=== PATIENT | female | born 1980 | race Caucasian/White ===

== ENCOUNTER 2016-09-26 04:06 | Observation (INO) ==
[2016-09-26] MEDS ORDERED: 0.9 % Sodium Chloride 1,000 ML IVC ONE (04:24)
--- NOTE | 2016-09-26 04:39 | Emergency Department Note ---
Disposition Clinical Impression: Symptomatic sinus bradycardia Disposition: Admitted As Inpatient Condition: Fair Time of Disposition: 06:36 General Adult HPI - General Chief complaint: ED Dizziness Stated complaint: high glucose low heart rate Time Seen by Provider: 09/26/16 04:24 Source: patient, other Mode of arrival: ambulatory Limitations: no limitations Nursing Notes Reviewed: Yes Vital Signs Reviewed: Yes - History of Present Illness HPI Narrative: 35-year-old female history of seizure disorder takes Keppra presents to the ED not feeling well and dizziness. Around 2 o'clock this morning her mother who is a nurse checked her vitals after she reports not feeling well and lightheaded. Her pulse was found to be in the 40s in her blood sugar was checked and was well above 400. She denies any history of diabetes. She denies any recent illness, headache, fever, chest pain, shortness of breath. Denies any recent travel, tick bites, rash. Denies any new medications other than her Keppra, gabapentin, Benadryl and Zanaflex. Denies any bowel pain, nausea, vomiting. Denies any abdominal surgeries. No family history of cardiac disease. Denies any loss of consciousness or head injury. She appears very pale. She just finished her menstrual period. Follows with Dr. Tamayo, PCP. Pain Scale: 0 - Related Data Home Medications Medication Instructions Recorded Confirmed Gabapentin [Neurontin] 600 mg PO TID 02/16/15 08/13/15 Norgestimate-Ethinyl Estradiol 1 tab PO DAILY 08/13/15 08/13/15 [Sprintec 28 Day Tablet] OxyCODONE/APAP 5/325 [Percocet 1 each PO Q6HR PRN 08/13/15 08/13/15 5/325 MG] Tizanidine HCl 4 mg PO Q8H PRN 08/13/15 08/13/15 Previous Rx's Medication Instructions Recorded Ibuprofen [Motrin] 600 mg PO Q8HR PRN #20 tablet 05/30/15 OxyCODONE/APAP 5/325 [Percocet 1 each PO Q6HR PRN #20 tablet 08/13/15 5/325 MG] Allergies Allergy/AdvReac Type Severity Reaction Status Date / Time Sulfa (Sulfonamide Allergy unknown Verified 09/26/16 04:18 Antibiotics) childhood reaction All systems ED: reviewed and negative except as stated. Constitutional: Reports: weakness. Denies: fever, chills Cardiovascular: Denies: chest pain, palpitations Respiratory: Denies: cough, dyspnea, wheezes Gastrointestinal: Denies: nausea, vomiting, diarrhea, melena, hematochezia Genitourinary: Denies: urgency, dysuria, frequency Musculoskeletal: Denies: back pain, neck pain Integumentary: Denies: rash, abrasion Neurological: Reports: confusion, other (Lightheaded). Denies: headache, weakness, numbness Past Medical History - Past Medical History Attestation: Yes The following information was validated with the patient. Source: patient Medical history: Reports: seizures Surgical history: Reports: , cholecystectomy Psychiatric history: Reports: depression - Social History Smoking Status: Current every day smoker Smokeless Tobacco Status: No Alcohol use: Reports: none Drug use: Reports: none Physical Exam - General Limitations: no limitations General appearance: alert, in no apparent distress - Head Head exam: atraumatic, normocephalic, normal inspection - Eye Eye exam: Present: normal appearance, PERRL, EOMI. Absent: scleral icterus - ENT ENT exam: normal exam, normal oropharynx, mucous membranes dry - Neck Neck exam: Present: normal inspection, full ROM, trachea midline. Absent: tenderness, lymphadenopathy - Chest Chest inspection: Present: normal inspection, symmetric chest wall rise. Absent : tenderness, rash - Respiratory Respiratory exam: Present: normal lung sounds bilaterally. Absent: respiratory distress, wheezes, stridor - Cardiovascular Cardiovascular exam: Present: normal rhythm, bradycardia, normal heart sounds. Absent: systolic murmur, diastolic murmur - Abdominal Exam Abdominal exam: Present: soft, Non-Tender, normal bowel sounds. Absent: tenderness, distention, guarding, rebound, rigidity - Extremities Exam Extremities exam: Present: normal inspection, full ROM, normal capillary refill. Absent: tenderness, pedal edema, calf tenderness - Neurological Exam Neurological exam: Present: alert, oriented X3 - Psychiatric Psychiatric exam: Present: normal affect, normal mood - Skin Skin exam: Present: dry, intact, pallor Course Course Narrative: 35-year-old female history of seizure disorder presents to ED with hyperglycemia. She denies any history of diabetes. Point of care glucose 312. Patient is afebrile. Heart rate is in the 40s. She appears very pale and denies any chest pain or shortness of breath. She appears in no acute distress. EKG shows sinus bradycardia with the first-degree AV block GA interval 221. She has no obvious rash or lesion. Heart without murmurs or gallops. Lungs are clear to auscultation bilaterally. Abdomen is soft nontender nondistended. Neurologic exam is normal without any focal neural deficits. Will check basic labs, VBG, CT head, CXR, troponin, serum ketones, and urine. - Reevaluation(s) Reevaluation #1: CT head is unremarkable for any intracranial abnormality. Electrolytes are within normal limits. Potassium is normal at 4. She has an acidosis of 7.3 with elevated CO2 in 50s. Lactate ordered. Glucose is elevated 312. No metabolic acidosis and serum ketone is normal. She is not in DKA. EKG shows 1st degree AV block. Her HR has fluctuated between 40-50s. Mentation is baseline. No slurring of speech. UDS reveals positive opiates and benzo. She admits to using old percocet medications a few days ago and a nerve pill a few weeks ago. Denies any other recreational drugs or IV drugs. Will admit for observation for symptomatic bradycardia with unclear etiology. Patient and family are in agreement with plan. Time: 06:30 - Consultations Consultation #1: Spoke with on-call hospitalist osmany Downs to admit for symptomatic bradycardia and acidosis. Requests to order salicylate, Tylenol, lactic acid. Patient was completely straightforward when revealing your drug screen. She reports taken her Percocet which is old prescription for back pain as well as getting a nerve pill she took a few weeks ago. Denies any intentional overdose of any medication. Denies any IV drug use or alcohol use. Time: 06:35 Vital Signs Temperature 98.2 F 09/26/16 04:08 Pulse Rate 48 09/26/16 04:08 Respiratory Rate 20 09/26/16 04:08 Blood Pressure 155/111 09/26/16 04:08 O2 Sat by Pulse Oximetry 100 09/26/16 04:08 Temperature 98.2 F 09/26/16 04:08 Pulse Rate 51 09/26/16 07:02 Respiratory Rate 18 09/26/16 07:02 Blood Pressure 123/73 09/26/16 07:02 O2 Sat by Pulse Oximetry 99 09/26/16 07:02 Oxygen Delivery Oxygen Delivery Room Air Medical Decision Making - Medical Records Medical records reviewed: Yes I reviewed the patient's medical records. - Lab Data Lab results reviewed: Yes I reviewed the patient's lab results. Result diagrams: 09/26/16 03:35 09/26/16 03:35 Lab Results 09/26/16 09/26/16 09/26/16 Range/Units 03:35 03:35 03:35 WBC 14.1 H (4.3-11.1) K/mcL RBC 4.24 (3.82-4.97) M/mcL Hgb 12.9 (11.5-15.4) g/dL Hct 39.3 (35.3-44.9) % MCV 92.7 (83.0-100.0) fL MCH 30.4 (28.0-33.3) pg MCHC 32.8 (31.6-35.5) g/dL RDW 13.1 (11.5-14.5) % Plt Count 356 (140-400) K/mcL MPV 9.6 (9.4-12.4) fL Immature Gran % 0.4 (0-4) % Seg Neutrophils % 62.7 % Lymphocytes % 29.7 % Monocytes % 4.8 % Eosinophils % 1.8 % Basophils % 0.6 % Neutrophils # 8.8 (1.6-8.9) K/mcL Lymphocytes # 4.2 (0.6-4.6) K/mcL Monocytes # 0.7 (0.0-1.3) K/mcL Eosinophils # 0.3 (0.0-0.6) K/mcL Basophils # 0.1 (0.0-0.2) K/mcL VBG pH (7.32-7.42) pH Units VBG pCO2 (41-51) mmHg VBG pO2 (25-40) mmHg VBG HCO3 (21-27) mEq/L Sodium 137 (136-145) mEq/L Potassium 4.0 (3.5-4.5) mEq/L Chloride 106 (98-109) mEq/L Carbon Dioxide 23 (19-29) mEq/L BUN 10 (7-20) mg/dL Creatinine 0.95 (0.57-1.11) mg/dL Est GFR ( Amer) > 60 (> 60) Est GFR (Non-Af Amer) > 60 (> 60) BUN/Creatinine Ratio 11 (6-26) Glucose 328 H (70-99) mg/dL POC Glucose (58-89) Calculated Osmolality 296 (280-300) Lactic Acid (0.5-2.2) mmol/L Calcium 8.5 L (8.6-10.8) mg/dL Troponin I 0.00 (0-0.03) ng/mL Beta-Hydroxybutyric Acd 0.22 (0.02-0.27) mmol/L Urine Color (Yellow) Urine Clarity (Clear) Urine pH (5.0-8.0) pH Units Ur Specific [place] (1.010-1.025) Urine Protein (Neg-Trace) mg/dL Urine Glucose (UA) (Normal) mg/dL Urine Ketones (Negative) mg/dL Urine Blood (Negative) Urine Nitrite (Negative) Urine Bilirubin (Negative) Urine Urobilinogen (Normal) mg/dL Ur Leukocyte Esterase (Negative) Urine Microscopic WBC (0-3) per hpf Ur Squamous Epith Cells (None-Few) per lpf Urine Bacteria (None-Few) per hpf Hyaline Casts (None-Few) per lpf Ur Culture Indicated? (NO) Salicylates < 5.0 L (15-30) mg/dL Urine Opiates Screen (Zushvc=849) ng/mL Acetaminophen 4.0 L (10-30) mcg/mL Ur Barbiturates Screen (Lqotey=648) ng/mL Ur Phencyclidine Scrn (Cutoff=25) ng/mL Ur Amphetamines Screen (Uczpar=9338) ng/mL U Benzodiazepines Scrn (Rmnqhu=884) ng/mL Urine Cocaine Screen (Cutoff= 300) ng/mL U Marijuana (THC) Screen (Cutoff = 50) ng/mL 09/26/16 09/26/16 09/26/16 Range/Units 03:35 03:35 04:13 WBC (4.3-11.1) K/mcL RBC (3.82-4.97) M/mcL Hgb (11.5-15.4) g/dL Hct (35.3-44.9) % MCV (83.0-100.0) fL MCH (28.0-33.3) pg MCHC (31.6-35.5) g/dL RDW (11.5-14.5) % Plt Count (140-400) K/mcL MPV (9.4-12.4) fL Immature Gran % (0-4) % Seg Neutrophils % % Lymphocytes % % Monocytes % % Eosinophils % % Basophils % % Neutrophils # (1.6-8.9) K/mcL Lymphocytes # (0.6-4.6) K/mcL Monocytes # (0.0-1.3) K/mcL Eosinophils # (0.0-0.6) K/mcL Basophils # (0.0-0.2) K/mcL VBG pH 7.31 L (7.32-7.42) pH Units VBG pCO2 53 H (41-51) mmHg VBG pO2 39 (25-40) mmHg VBG HCO3 26.7 (21-27) mEq/L Sodium (136-145) mEq/L Potassium (3.5-4.5) mEq/L Chloride (98-109) mEq/L Carbon Dioxide (19-29) mEq/L BUN (7-20) mg/dL Creatinine (0.57-1.11) mg/dL Est GFR ( Amer) (> 60) Est GFR (Non-Af Amer) (> 60) BUN/Creatinine Ratio (6-26) Glucose (70-99) mg/dL POC Glucose 312 H (58-89) Calculated Osmolality (280-300) Lactic Acid 1.5 (0.5-2.2) mmol/L Calcium (8.6-10.8) mg/dL Troponin I (0-0.03) ng/mL Beta-Hydroxybutyric Acd (0.02-0.27) mmol/L Urine Color (Yellow) Urine Clarity (Clear) Urine pH (5.0-8.0) pH Units Ur Specific [place] (1.010-1.025) Urine Protein (Neg-Trace) mg/dL Urine Glucose (UA) (Normal) mg/dL Urine Ketones (Negative) mg/dL Urine Blood (Negative) Urine Nitrite (Negative) Urine Bilirubin (Negative) Urine Urobilinogen (Normal) mg/dL Ur Leukocyte Esterase (Negative) Urine Microscopic WBC (0-3) per hpf Ur Squamous Epith Cells (None-Few) per lpf Urine Bacteria (None-Few) per hpf Hyaline Casts (None-Few) per lpf Ur Culture Indicated? (NO) Salicylates (15-30) mg/dL Urine Opiates Screen (Yemvsr=307) ng/mL Acetaminophen (10-30) mcg/mL Ur Barbiturates Screen (Ouzzaz=703) ng/mL Ur Phencyclidine Scrn (Cutoff=25) ng/mL Ur Amphetamines Screen (Skxmyt=3725) ng/mL U Benzodiazepines Scrn (Mqlunu=884) ng/mL Urine Cocaine Screen (Cutoff= 300) ng/mL U Marijuana (THC) Screen (Cutoff = 50) ng/mL 09/26/16 09/26/16 Range/Units 05:11 05:11 WBC (4.3-11.1) K/mcL RBC (3.82-4.97) M/mcL Hgb (11.5-15.4) g/dL Hct (35.3-44.9) % MCV (83.0-100.0) fL MCH (28.0-33.3) pg MCHC (31.6-35.5) g/dL RDW (11.5-14.5) % Plt Count (140-400) K/mcL MPV (9.4-12.4) fL Immature Gran % (0-4) % Seg Neutrophils % % Lymphocytes % % Monocytes % % Eosinophils % % Basophils % % Neutrophils # (1.6-8.9) K/mcL Lymphocytes # (0.6-4.6) K/mcL Monocytes # (0.0-1.3) K/mcL Eosinophils # (0.0-0.6) K/mcL Basophils # (0.0-0.2) K/mcL VBG pH (7.32-7.42) pH Units VBG pCO2 (41-51) mmHg VBG pO2 (25-40) mmHg VBG HCO3 (21-27) mEq/L Sodium (136-145) mEq/L Potassium (3.5-4.5) mEq/L Chloride (98-109) mEq/L Carbon Dioxide (19-29) mEq/L BUN (7-20) mg/dL Creatinine (0.57-1.11) mg/dL Est GFR ( Amer) (> 60) Est GFR (Non-Af Amer) (> 60) BUN/Creatinine Ratio (6-26) Glucose (70-99) mg/dL POC Glucose (58-89) Calculated Osmolality (280-300) Lactic Acid (0.5-2.2) mmol/L Calcium (8.6-10.8) mg/dL Troponin I (0-0.03) ng/mL Beta-Hydroxybutyric Acd (0.02-0.27) mmol/L Urine Color Yellow (Yellow) Urine Clarity Clear (Clear) Urine pH 6.0 (5.0-8.0) pH Units Ur Specific [place] > 1.030 H (1.010-1.025) Urine Protein Trace (Neg-Trace) mg/dL Urine Glucose (UA) >=1000 H (Normal) mg/dL Urine Ketones Negative (Negative) mg/dL Urine Blood Negative (Negative) Urine Nitrite Negative (Negative) Urine Bilirubin Negative (Negative) Urine Urobilinogen Normal (Normal) mg/dL Ur Leukocyte Esterase Negative (Negative) Urine Microscopic WBC 5-15 H (0-3) per hpf Ur Squamous Epith Cells Many H (None-Few) per lpf Urine Bacteria Few (None-Few) per hpf Hyaline Casts None Seen (None-Few) per lpf Ur Culture Indicated? YES A (NO) Salicylates (15-30) mg/dL Urine Opiates Screen Positive H (Ounhvw=020) ng/mL Acetaminophen (10-30) mcg/mL Ur Barbiturates Screen Negative (Idnxwl=247) ng/mL Ur Phencyclidine Scrn Negative (Cutoff=25) ng/mL Ur Amphetamines Screen Negative (Jmgjnv=3871) ng/mL U Benzodiazepines Scrn Positive H (Zurzsz=765) ng/mL Urine Cocaine Screen Negative (Cutoff= 300) ng/mL U Marijuana (THC) Screen Negative (Cutoff = 50) ng/mL - Radiology Data Radiology results reviewed: Yes I reviewed the patient's radiology results. Chest X-Ray 09/26/16 04:24 IMPRESSION: No significant findings in the chest. D/ / Perez Villegas MD / Perez Villegas MD Interpreting Provider: Perez Villegas MD Head CT 09/26/16 04:24 IMPRESSION: No acute intracranial abnormality. D/ / Perez Villegas MD / Perez Villegas MD Interpreting Provider: Perez Villegas MD - EKG Data EKG #1 EKG attestation: Yes I reviewed and interpreted this EKG. EKG results narrative: EKG performed 0427 sinus bradycardia with first-degree AV block GA interval 221 , normal axis, poor R-R wave progression, there are no ST elevations or depressions, no T-wave inversions. Other intervals are within normal limits QRS 85 QT QTC 451 385. Compared to old EKG performed 08/17/2016 which shows sinus tachycardia within normal GA interval, has inverted T waves in lead III which are not present on today's EKG. No acute ischemic changes. Attestation Statement - Attestation Attestation: I examined this patient and my medical decision-making was reviewed with the MASTER PILOT/PA/Advanced Practice Nurse/Resident Physician. I agree with the documented findings, disposition and treatment plan as described except to the extent set forth below. Patient to the emergency department complaining of not feeling well. Dizziness. States he checked her blood sugar and it was high. Her pulse was low. Denies being diabetic. She takes Keppra for seizure disorder. Denies any drugs or alcohol. Exam shows her pale. In no acute distress. Moving all extremities. Lungs clear. Heart slightly irregular. Plan. Cardiac workup with ketones and VBG. Head CT. IV fluids and reevaluate.
[2016-09-26 04:42] LABS: Basophils # 0.1 K/mcL (0.0-0.2); Basophils % 0.6 %; Eosinophils # 0.3 K/mcL (0.0-0.6); Eosinophils % 1.8 %; Hematocrit 39.3 % (35.3-44.9); Hemoglobin 12.9 g/dL (11.5-15.4); Immature Granulocytes % 0.4 % (0-4); Lymphocytes # 4.2 K/mcL (0.6-4.6); Lymphocytes % 29.7 %; Mean Corpuscular HGB Conc 32.8 g/dL (31.6-35.5); Mean Corpuscular Hemoglobin 30.4 pg (28.0-33.3); Mean Corpuscular Volume 92.7 fL (83.0-100.0); Mean Platelet Volume 9.6 fL (9.4-12.4); Monocytes # 0.7 K/mcL (0.0-1.3); Monocytes % 4.8 %; Neutrophils # 8.8 K/mcL (1.6-8.9); Platelet Count 356 K/mcL (140-400); Red Blood Count 4.24 M/mcL (3.82-4.97); Red Cell Distribution Width 13.1 % (11.5-14.5); Segmented Neutrophils % 62.7 %; VBG HCO3 26.7 mEq/L (21-27); VBG PH 7.31 pH Units (7.32-7.42)
[2016-09-26 04:50] LABS: Beta-Hydroxybutyric Acid 0.22 mmol/L (0.02-0.27)
[2016-09-26 05:16] LABS: BUN/Creatinine Ratio 11 (6-26); Blood Urea Nitrogen 10 mg/dL (7-20); Calcium 8.5 mg/dL (8.6-10.8); Carbon Dioxide 23 mEq/L (19-29); Chloride 106 mEq/L (98-109); Glucose 328 mg/dL (70-99); Osmolality,Calculated 296 (280-300); Sodium 137 mEq/L (136-145); eGFR For African Americans > 60 (> 60); eGFR For Non-African Americans > 60 (> 60)
[2016-09-26 05:18] LABS: Bilirubin,Urine Negative (Negative); Blood,Urine Negative (Negative); Color,Urine Yellow (Yellow); Glucose,Urine (UA) >=1000 mg/dL (Normal); Ketones,Urine Negative (Negative); Leukocyte Esterase,Urine Negative (Negative); Nitrite,Urine Negative (Negative); Protein,Urine Trace mg/dL (Neg-Trace); Specific Gravity,Urine > 1.030 (1.010-1.025); Urobilinogen,Urine Normal (Normal)
[2016-09-26 05:19] LABS: Clarity,Urine Clear (Clear)
[2016-09-26 05:20] LABS: Bacteria,Urine Few per hpf (None-Few); Hyaline Casts,Urine None Seen per lpf (None-Few); Squamous Epithelial Cell,Urine Many per lpf (None-Few)
[2016-09-26 05:23] LABS: Amphetamine Screen,Urine Negative ng/mL (Cutoff=1000); Barbiturate Screen,Urine Negative ng/mL (Cutoff=200); Benzodiazepines Screen,Urine Positive ng/mL (Cutoff=200); Cannabinoid Screen,Urine Negative ng/mL (Cutoff = 50); Cocaine Screen,Urine Negative ng/mL (Cutoff= 300); Opiate Screen,Urine Positive ng/mL (Cutoff=300); Phencyclidine Screen,Urine Negative ng/mL (Cutoff=25)
[2016-09-26 06:56] LABS: Salicylate < 5.0 mg/dL (15-30)
[2016-09-26] MEDS ORDERED: Naloxone 0.4 MG/ML INJ IVP PRN (09:55)
[2016-09-26] MEDS ORDERED: Ondansetron 4 MG/2 ML VIAL IVP PRN (09:55)
[2016-09-26] MEDS ORDERED: Acetaminophen 325 MG TABLET PO PRN (09:55)
--- NOTE | 2016-09-26 10:08 | Internal Med History&Physical ---
Date of Encounter: 09/26/16 Time of Encounter: 10:02 Assessment and Plan (1) New onset type 2 diabetes mellitus Current visit: Yes Status: Acute We will check hemoglobin A1c. Patient's mother reported that glucose 4 was 460 at home. We will start insulin sliding scale and diabetic diet. Patient is not on steroids to suggest steroid induced diabetes. We will check C-peptide levels. Start metformin. (2) Seizure disorder Current visit: Yes Status: Acute Continue with Keppra. Seizure precautions. (3) DVT prophylaxis Current visit: Yes Status: Acute Encourage early ambulation. She does not require pharmacological prophylaxis due to being fully mobile. (4) Symptomatic sinus bradycardia Current visit: Yes Status: Acute Telemetry monitoring. Echocardiogram. Trend troponin. (5) Tobacco abuse Current visit: Yes Status: Acute Nicotine replacement therapy. I have advised smoking cessation. Internal Medicine - H&P: HPI Chief complaint: Altered mental status Admitted From: Emergency Dept Plans for Post Hospital Care: Home History of present illness: Ms. Valdivia is a 35 year old female with past medical history significant for seizure disorder who was brought to the hospital for altered mental status and bradycardia. The history is provided by the patient's mother at the bedside. The patient does not have good recollection of the events. Patient woke up early this morning and was noted to be confused and her mother. Her mother is a registered nurse and checked the patient's pulse and was 40. She checked her blood sugar and it was reported as 460. She was brought to the emergency department where an EKG was done and heart rate was recorded as 41. Currently her mental status is back to baseline and heart rate is 70. Patient states she is not sure if she is having a seizure, denies chest pain shortness of breath abdominal pain nausea vomiting and diarrhea. Denies abnormal bleeding and bruising. Denies recent upper respiratory tract infections. A 10 point review of systems was negative except per history of present illness Social history: Patient smokes 10 cigarettes a day, denies alcohol and recreational drug use. 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 Family history: Patient's maternal grandmother suffers with diabetes and coronary disease. Past Med Surg Social Fam HX - Past Medical History Medical history: seizures Psychiatric history: depression - Past Surgical History Surgical History: , cholecystectomy - Social History Smoking Status: Current every day smoker Smokeless Tobacco Status: No Alcohol use: none Drug use: none Internal Medicine - H&P: Meds Cyanocobalamin (Vitamin B-12) [Vitamin B12] 1,000 mcg PO DAILY 09/26/16 [History ] Etodolac [Lodine] 400 mg PO BID 09/26/16 [History] Gabapentin [Neurontin] 800 mg PO TID 09/26/16 [History] LevETIRAcetam [Roweepra] 500 mg PO BID 09/26/16 [History] Tizanidine HCl [Zanaflex] 4 mg PO TID PRN 09/26/16 [History] Allergies Sulfa (Sulfonamide Antibiotics) Allergy (Verified 09/26/16 04:18) unknown childhood reaction All Systems PM: A 10-system review of systems was performed and is negative for pertinent findings except as documented above in the HPI. - Constitutional Vitals: Temp Pulse Resp BP Pulse Ox 98.2 F 76 18 125/87 99 09/26/16 04:08 09/26/16 09:30 09/26/16 09:30 09/26/16 09:30 09/26/16 09:30 General appearance: Present: A&O X 3, no acute distress, answers questions appropriately - Head Head exam: Present: atraumatic, normocephalic - Eye Eye exam: Present: PERRL, conjuntiva pink, sclera anicteric Pupils: Present: PERRL - Respiratory Respiratory exam: Present: CTAB. Absent: accessory muscle use, rales, rhonchi, wheezes - Cardiovascular Cardiovascular exam: Present: RRR, +S1, +S2. Absent: diastolic murmur, gallop, rubs, systolic murmur - GI/Abdominal GI/Abdominal exam: Present: normal bowel sounds, soft, no peritoneal signs. Absent: distended, tenderness - Extremities Exam Extremities exam: Present: warm, radial pulses palpable and symetrical. Absent : calf tenderness, cyanotic, pedal edema - Neurological Exam Neurological exam: Present: CN II-XII intact, oriented X3, no focal deficits. Absent: pronater drift, facial droop, speech deficit - Skin Skin exam: Present: dry, intact Internal Med - H&P Results - Labs CBC & Chem 7: 09/26/16 03:35 09/26/16 03:35 - EKG Data -: EKG Interpreted by Myself (sins jovanny, 41bpm, 1st degree AVB) Rate: bradycardia
[2016-09-26] MEDS ORDERED: Nicotine 21 MG PATCH.TD24 TD STA (10:09)
[2016-09-26] MEDS: Nicotine 21 MG PATCH.TD24 TD SCH (10:30)
[2016-09-26] MEDS ORDERED: D5% in Water 1,000 ML IV PRN (12:38)
[2016-09-26] MEDS ORDERED: *HR* Dextrose 50 % in Water (Syg) 50 ML SYRINGE IVP PRN (12:38)
[2016-09-26] MEDS ORDERED: Dextrose Gel 15 GM PO PRN ×2 (12:38)
[2016-09-26 14:12] LABS: Hemoglobin A1C 5.4 %
[2016-09-26] MEDS: tiZANidine 4 MG TABLET PO PRN ×2 (15:25→21:19)
[2016-09-26] MEDS: Gabapentin 400 MG CAPSULE PO SCH ×2 (15:25→21:13)
[2016-09-26] MEDS: Insulin LISPRO 300 UNITS/3 ML VIAL SQ SCH ×2 (17:20→23:52)
[2016-09-26] MEDS: levETIRAcetam 250 MG TABLET PO SCH (21:13)
[2016-09-27 05:38] LABS: Basophils # 0.1 K/mcL (0.0-0.2); Basophils % 0.7 %; Eosinophils # 0.2 K/mcL (0.0-0.6); Eosinophils % 2.1 %; Hematocrit 38.7 % (35.3-44.9); Hemoglobin 12.6 g/dL (11.5-15.4); Immature Granulocytes % 0.2 % (0-4); Lymphocytes # 3.7 K/mcL (0.6-4.6); Lymphocytes % 35.4 %; Mean Corpuscular HGB Conc 32.6 g/dL (31.6-35.5); Mean Corpuscular Hemoglobin 30.5 pg (28.0-33.3); Mean Corpuscular Volume 93.7 fL (83.0-100.0); Mean Platelet Volume 9.9 fL (9.4-12.4); Monocytes # 0.6 K/mcL (0.0-1.3); Monocytes % 5.5 %; Neutrophils # 5.8 K/mcL (1.6-8.9); Platelet Count 318 K/mcL (140-400); Red Blood Count 4.13 M/mcL (3.82-4.97); Red Cell Distribution Width 13.1 % (11.5-14.5); Segmented Neutrophils % 56.1 %
[2016-09-27 06:02] LABS: BUN/Creatinine Ratio 10 (6-26); Blood Urea Nitrogen 8 mg/dL (7-20); Calcium 8.7 mg/dL (8.6-10.8); Carbon Dioxide 24 mEq/L (19-29); Chloride 109 mEq/L (98-109); Glucose 102 mg/dL (70-99); Magnesium 1.6 mg/dL (1.6-2.6); Osmolality,Calculated 291 (280-300); Potassium 3.6 mEq/L (3.5-4.5); Sodium 141 mEq/L (136-145); eGFR For African Americans > 60 (> 60); eGFR For Non-African Americans > 60 (> 60)
[2016-09-27] MEDS: Nicotine 21 MG PATCH.TD24 TD SCH (06:43)
[2016-09-27] MEDS: tiZANidine 4 MG TABLET PO PRN (06:43)
[2016-09-27] MEDS: Insulin LISPRO 300 UNITS/3 ML VIAL SQ SCH ×4 (07:58→21:36)
[2016-09-27] MEDS: Gabapentin 400 MG CAPSULE PO SCH ×3 (09:44→20:42)
[2016-09-27] MEDS: levETIRAcetam 250 MG TABLET PO SCH ×2 (09:44→20:42)
[2016-09-27] MEDS: *HR* OxyCODONE/APAP 5/325 TABLET PO PRN ×3 (10:26→23:51)
[2016-09-27] MEDS: *HR* Enoxaparin 40 MG/0.4 ML SYRINGE SQ SCH (14:45)
--- NOTE | 2016-09-27 15:28 | Electrocardiograph Report ---
[place] [id number] Test Date: 2016-09-26 Pat Name: Juan Valdivia Department: 103 Room: 2NE28 Gender: F [employer]: : 1980 Requested By: Yadira See Order Number: [id number] Reading MD: Boston Bhatti MD Measurements Intervals [place] Rate: 41 P: 37 AL: 221 QRS: 46 QRSD: 85 T: 65 QT: 451 QTc: 385 Interpretive Statements SINUS BRADYCARDIA WITH SINUS ARRHYTHMIA WITH FIRST DEGREE AV BLOCK Poor R wave progression Electronically Signed On 09-27-2016 15:26:51 EDT by Boston Bhatti MD
--- NOTE | 2016-09-27 16:26 | Neurology - Consult Note ---
Date of Encounter: 09/27/16 Time of Encounter: 11:00 Assessment and Plan (1) Seizure disorder Current Visit: Yes Status: Acute The patient apparently had a history of seizure disorder noted to have significantly elevated production work this morning along with low heart rate, and mental status changes which has been resolved now and now she seems to be back to her baseline blood sugar also seems to be much better now. At this time it is not clear that indeed she had a seizure or not and if it is perhaps may have it during sleep, but no other sign off conversion particularly no tongue bite or incontinence were reported. That much elevated blood sugar 450 this possible patient could have a seizure even without history of seizure this level of hyperglycemia certainly can cause seizures. She is already on the Keppra I do not think that we need to make any changes I would suggest that we should check a Keppra level to make sure that it is therapeutic we will may give her an extra dose of Keppra today. Beside that she will remain on seizure precautions Need to check other metabolic abnormalities in the same time also need to check further about this elevated blood pressure as it might be a new onset diabetes for which she might need to be treated. At this time do not think doing an EEG is going to be helpful as she is already on medication Other treatment is as per primary care team (2) Hyperglycemia Current Visit: Yes Status: Acute History of Present Illness HPI: Ms. Valdivia is a 35 year old female with past medical history significant for seizure disorder who was brought to the hospital for altered mental status and bradycardia. as per records Patient woke up early this morning and was noted to be confused and her mother. Her mother is a registered nurse and checked the patient's pulse and was 40. and her blood sugar and it was reported as 460. She was brought to the emergency department where an EKG was done and heart rate was recorded as 41. pt not able to recall much of the events not sure she had a seizures or not, denies any toungue bite or incontinence denies chest pain shortness of breath abdominal pain nausea vomiting and diarrhea. Denies abnormal bleeding and bruising. Denies recent upper respiratory tract infections. she was seen earlier in office for seizures and started on keppra and doing well denies any seizures since on meds Past Med Surg Social Fam HX - Past Medical History Medical history: seizures Psychiatric history: depression - Past Surgical History Surgical History: , cholecystectomy - Social History Smoking Status: Current every day smoker Packs per day: 1/2 Smokeless Tobacco Status: No Alcohol use: none Drug use: none Medications and Allergies Cyanocobalamin (Vitamin B-12) [Vitamin B12] 1,000 mcg PO DAILY 09/26/16 [History ] Etodolac [Lodine] 400 mg PO BID 09/26/16 [History] Gabapentin [Neurontin] 800 mg PO TID 09/26/16 [History] LevETIRAcetam [Roweepra] 500 mg PO BID 09/26/16 [History] Tizanidine HCl [Zanaflex] 4 mg PO TID PRN 09/26/16 [History] Allergies Sulfa (Sulfonamide Antibiotics) Allergy (Verified 09/26/16 04:18) unknown childhood reaction All Systems: A 10-system review of systems was performed and is negative for pertinent findings except as documented above in the HPI. Physical Examination - Vital Signs Vital Signs: Initial Vital Signs Temp Pulse Resp BP Pulse Ox 98.2 F 48 20 155/111 100 09/26/16 04:08 09/26/16 04:08 09/26/16 04:08 09/26/16 04:08 09/26/16 04:08 - Neurologic Detailed motor examination: full strength in all major muscle groups Motor examination - right side: 5/5: deltoids, biceps, triceps, wrist flexion, wrist extension, check inspector, hip flexors, tibialis Anterior, quadriceps, toe extension (EHL), plantarflexion Motor examination - left side: 5/5: deltoids, biceps, triceps, wrist flexion, wrist extension, hip flexors, check inspector, quadriceps, tibialis Anterior, toe extension (EHL), plantarflexion Mental Status Examination: awake, alert, oriented to person, oriented to place, oriented to time, follows commands appropriately, answers questions appropriately, no agnosia, no aphasia, no aproxia Cranial nerve examination: PERRL, EOMI, visual ramirez intact, corneal reflexes brisk symmetrically, sensory to face intact, mastication intact, no facial asymmetry is present, no dysarthria, hearing is intact symmetrically, soft palate elevates bilaterally upon phonation, gag reflex intact, flexes SCM and trapezius muscles symmetrically with full power, tongue protrudes midline, no atrophy or facial fasiculations present Cerebellar examination: no dysmetria, performs finger to nose and heel to ornelas symmetrically without ataxia, no gait ataxia, no truncal ataxia, no difficulty with rapid alternating movements Results - Laboratory Findings CBC and BMP: 09/27/16 05:21 09/27/16 05:21 Abnormal lab findings: Abnormal lab results VBG pH 7.31 pH Units (7.32-7.42) L 09/26/16 03:35 VBG pCO2 53 mmHg (41-51) H 09/26/16 03:35 Glucose 102 mg/dL (70-99) H 09/27/16 05:21 POC Glucose 108 (58-89) H 09/27/16 12:02 Ur Specific [place] > 1.030 (1.010-1.025) H 09/26/16 05:11 Urine Glucose (UA) >=1000 mg/dL (Normal) H 09/26/16 05:11 Urine Microscopic WBC 5-15 per hpf (0-3) H 09/26/16 05:11 Ur Squamous Epith Cells Many per lpf (None-Few) H 09/26/16 05:11 Ur Culture Indicated? YES (NO) A 09/26/16 05:11 Salicylates < 5.0 mg/dL (15-30) L 09/26/16 03:35 Urine Opiates Screen Positive ng/mL (Qlggrn=907) H 09/26/16 05:11 Acetaminophen 4.0 mcg/mL (10-30) L 09/26/16 03:35 U Benzodiazepines Scrn Positive ng/mL (Afzkfy=745) H 09/26/16 05:11 Consult Discharge Plan - Plan Referrals: Genet Tamayo MD [Primary Care Provider] -
--- NOTE | 2016-09-27 17:38 | Internal Med Progress Note ---
Date of Encounter: 09/27/16 Time of Encounter: 09:00 - Assessment and plan (1) Acute encephalopathy Current Visit: Yes Status: Acute Assessment and plan: Etiology is and determined. Possibly metabolic. Patient has recent 4-5 Percocet use due to leg pain, which may also contribute to confusion and bradycardia. 1. Neurology consult called and saw patient. Recommend keep her current Keppra dose. 2. Closer continuous monitor patient in telemetry. 3. Correct metabolic disorders, closely monitor Glu, electrolytes. 4. Check echo and duplex carotid. 5. CT done, negative. (2) DVT prophylaxis Current Visit: Yes Status: Acute Assessment and plan: Lovenox SC (3) Hyperglycemia Current Visit: Yes Status: Acute Assessment and plan: Possibly reactive. Hemoglobin A1c 5.4 make diabetes is unlikely. Will closely monitor glucose level and repeat another A1c (4) Seizure disorder Current Visit: Yes Status: Acute Assessment and plan: Continue Keppra. Neurology consult on case, recommendation will follow (5) Tobacco abuse Current Visit: Yes Status: Acute Assessment and plan: Smoking cessation education. On nicotine patch (6) Symptomatic sinus bradycardia Current Visit: Yes Status: Acute Assessment and plan: In ER, EKG shows sinus bradycardia with HR 41, 1st degree AVB. No bradycardia now. Will keep telemetry monitoring. Repeat EKG. - Time Spent With Patient 25 - 35 minutes - Subjective Interval history: Patient is a 35-year-old female admitted for confusion, and hyperglycemia. Her past medical history is significant for seizure on Keppra. She was seen and examined. She is awake alert, oriented 3. Vitals are stable. No further confusion. Glucose level is getting down to normal. Hemoglobin A1c level is 5.4, which makes diabetes diagnosis unlikely. We will closely monitor glucose level and repeat a hemoglobin A1c in a.m.. Neurology consult appreciated. Will continue keppra for seizure. - Constitutional Vitals: Temp Pulse Resp BP Pulse Ox 98.1 F 85 18 133/86 95 09/27/16 16:53 09/27/16 16:53 09/27/16 16:53 09/27/16 16:53 09/27/16 16:53 General appearance: Present: A&O X 3, no acute distress, answers questions appropriately - Head Head exam: Present: atraumatic, normocephalic - Eye Eye exam: Present: PERRL, conjuntiva pink, sclera anicteric Pupils: Present: PERRL - Neck Neck exam general surgery: Present: supple, trachea midline. Absent: lymphadenopathy - Respiratory Respiratory exam: Present: CTAB. Absent: accessory muscle use, rales, rhonchi, wheezes - Cardiovascular Cardiovascular exam: Present: RRR, +S1, +S2. Absent: diastolic murmur, gallop, rubs, systolic murmur - GI/Abdominal GI/Abdominal exam: Present: normal bowel sounds, soft, no peritoneal signs. Absent: distended, tenderness - Extremities Exam Extremities exam: Present: warm, radial pulses palpable and symetrical. Absent : calf tenderness, cyanotic, pedal edema - Neurological Exam Neurological exam: Present: CN II-XII intact, oriented X3, no focal deficits. Absent: pronater drift, facial droop, speech deficit - Skin Skin exam: Present: dry, intact Internal Medicine: Result - Labs CBC & Chem 7: 09/27/16 05:21 09/27/16 05:21 Labs: Short CBC 09/27/16 Range/Units 05:21 WBC 10.3 (4.3-11.1) K/mcL Hgb 12.6 (11.5-15.4) g/dL Hct 38.7 (35.3-44.9) % Plt Count 318 (140-400) K/mcL Neutrophils # 5.8 (1.6-8.9) K/mcL BMP 09/27/16 05:21 Sodium 141 Potassium 3.6 Chloride 109 Carbon Dioxide 24 BUN 8 Creatinine 0.77 Glucose 102 H Calcium 8.7 Cardiac Enzymes 09/26/16 Range/Units 21:35 Troponin I 0.00 (0-0.03) ng/mL Consult Discharge Plan - Plan Referrals: Genet Tamayo MD [Primary Care Provider] -
[2016-09-28] MEDS: tiZANidine 4 MG TABLET PO PRN ×2 (04:58→12:09)
[2016-09-28] MEDS: *HR* Enoxaparin 40 MG/0.4 ML SYRINGE SQ SCH (04:58)
[2016-09-28 06:40] LABS: Basophils # 0.1 K/mcL (0.0-0.2); Basophils % 0.6 %; Eosinophils # 0.2 K/mcL (0.0-0.6); Eosinophils % 1.8 %; Hematocrit 37.7 % (35.3-44.9); Hemoglobin 12.5 g/dL (11.5-15.4); Immature Granulocytes % 0.4 % (0-4); Immature Platelets 2.8 % (1.1-6.1); Lymphocytes # 4.8 K/mcL (0.6-4.6); Lymphocytes % 35.5 %; Mean Corpuscular HGB Conc 33.2 g/dL (31.6-35.5); Mean Corpuscular Hemoglobin 30.6 pg (28.0-33.3); Mean Corpuscular Volume 92.4 fL (83.0-100.0); Mean Platelet Volume 10.5 fL (9.4-12.4); Monocytes # 0.9 K/mcL (0.0-1.3); Monocytes % 6.8 %; Neutrophils # 7.4 K/mcL (1.6-8.9); Platelet Count 326 K/mcL (140-400); Red Blood Count 4.08 M/mcL (3.82-4.97); Red Cell Distribution Width 12.9 % (11.5-14.5); Segmented Neutrophils % 54.9 %
[2016-09-28 06:54] LABS: Hemoglobin A1C 5.5 %
[2016-09-28 06:57] VITALS: BP 123/79
[2016-09-28 06:59] LABS: BUN/Creatinine Ratio 11 (6-26); Blood Urea Nitrogen 8 mg/dL (7-20); Calcium 8.4 mg/dL (8.6-10.8); Carbon Dioxide 24 mEq/L (19-29); Chloride 108 mEq/L (98-109); Glucose 99 mg/dL (70-99); Osmolality,Calculated 292 (280-300); Potassium 3.4 mEq/L (3.5-4.5); Sodium 142 mEq/L (136-145); eGFR For African Americans > 60 (> 60); eGFR For Non-African Americans > 60 (> 60)
[2016-09-28] MEDS: *HR* OxyCODONE/APAP 5/325 TABLET PO PRN ×2 (07:02→14:27)
[2016-09-28] MEDS: Insulin LISPRO 300 UNITS/3 ML VIAL SQ SCH ×2 (08:15→12:08)
[2016-09-28] MEDS: Nicotine 21 MG PATCH.TD24 TD SCH (09:52)
[2016-09-28] MEDS: Gabapentin 400 MG CAPSULE PO SCH ×2 (09:52→14:27)
[2016-09-28] MEDS: levETIRAcetam 250 MG TABLET PO SCH (09:52)
--- NOTE | 2016-09-28 10:14 | ECHO - Doppler Report ---
Echocardiogram Name: Juan Valdivia Date of Study: 09/27/2016 Date: 1980 Ht: 68.0 in Medical Record#: [id number] Age: 35 Wt: 251.0 lb Gender: Female BSA: 2.25 Order #: [id number] Location: [facility] Room #: [id number] Reading Physician: Candido Santos MD, [facility] Trial Attorney: Michelle Bowman Ordering Physician: Clark Bright MD Primary Physician: Genet Tamayo MD Indications: AMS Impressions: Normal LV systolic function, LVEF 60-65%. Normal right ventricular size and function. No significant valvular dysfunction. Left Ventricular Wall Motion: Rest Echo Findings All wall segments showed normal motion. Findings: Study Quality * Technically adequate exam. ECG Findings * Normal sinus rhythm. Left Ventricle * Normal LV systolic function, LVEF 60-65%. * Normal LV chamber size and wall thickness. * Indeterminate diastolic function. Right Ventricle * Normal right ventricular size and function. Left Atrium * Normal left atrial size. Right Atrium * Normal right atrial size. Aorta * Normally sized aortic root. Pericardium * There is no pericardial effusion present. IVC * The IVC is not dilated. Aortic Valve * Trileaflet aortic valve. * No aortic stenosis. * No aortic regurgitation. Mitral Valve * Normal mitral valve structure. * No mitral stenosis. * No mitral regurgitation. Tricuspid Valve * Normal tricuspid valve structure. * No tricuspid stenosis. * Trace tricuspid regurgitation. * Unable to estimate RVSP due to lack of TR jet. Pulmonic Valve * Normal pulmonic valve structure. * No pulmonic stenosis. * Trace pulmonic regurgitation. History History of Smoking Years 18 Packs 0.5 Family History of CAD Measurements: BP: 133/ 86 2D Normal Values RVIDd: 2.80 cm IVSd: 1.00 cm 0.6 - 1.0 cm LVIDd: 4.10 cm 3.7 - 5.6 cm LVPWd: 1.00 cm 0.6 - 1.1 cm LVIDs: 2.30 cm 1.5 - 3.6 cm AO: 3.00 cm < 4.0 cm LA volume: 45 Updated by Candido Santos MD, [facility] on 09/28/2016 10:07:20 AM electronically signed on 09/28/2016 10:08:12 AM with status of Final Wall Motion Live: 1=Normal, 2=Hypokinesis, 3=Akinesis, 4=Dyskinesis, 5=Aneurysmal, 6=Hyperkinetic, X=Not Visualized (Blank)=Missing
--- NOTE | 2016-09-28 10:32 | Neurology Progress Note ---
Date of Encounter: 09/28/16 Time of Encounter: 08:10 Assessment and Plan (1) Seizure disorder Current Visit: Yes Status: Acute continue on KEPPRA, other workup is per primary team, no need to change the dose at this time, OK to DC from neuro stand point f/u as scheduled (2) Hyperglycemia Current Visit: Yes Status: Acute Subjective Interval history: stable no new neuro symptoms no seizures Objective - Constitutional Vitals: Temp Pulse Resp BP Pulse Ox 97.9 F 90 16 123/79 97 09/28/16 06:53 09/28/16 06:53 09/28/16 06:53 09/28/16 06:53 09/28/16 09:00 - Neurological Exam Motor Examination: Present: full strength in all major muscle groups Motor examination - left side: 5/5: deltoids, biceps, triceps, wrist flexion, wrist extension, hip flexors, well logger, quadriceps, tibialis Anterior, toe extension (EHL), plantarflexion Mental Status Examination: Present: awake, alert, oriented to person, oriented to place, oriented to time, follows commands appropriately, answers questions appropriately, no agnosia, no aphasia, no aproxia Cranial nerve examination: Present: PERRL, EOMI, visual ramirez intact, corneal reflexes brisk symmetrically, sensory to face intact, mastication intact, no facial asymmetry is present, no dysarthria, hearing is intact symmetrically, soft palate elevates bilaterally upon phonation, gag reflex intact, flexes SCM and trapezius muscles symmetrically with full power, tongue protrudes midline, no atrophy or facial fasiculations present Cerebellar examination: Present: no dysmetria, performs finger to nose and heel to ornelas symmetrically without ataxia, no gait ataxia, no truncal ataxia, no difficulty with rapid alternating movements Results - Laboratory Findings CBC and BMP: 09/28/16 05:31 09/28/16 05:31 Abnormal lab findings: Abnormal lab results WBC 13.5 K/mcL (4.3-11.1) H 09/28/16 05:31 Lymphocytes # 4.8 K/mcL (0.6-4.6) H 09/28/16 05:31 VBG pH 7.31 pH Units (7.32-7.42) L 09/26/16 03:35 VBG pCO2 53 mmHg (41-51) H 09/26/16 03:35 Potassium 3.4 mEq/L (3.5-4.5) L 09/28/16 05:31 POC Glucose 125 (58-89) H 09/28/16 06:55 Calcium 8.4 mg/dL (8.6-10.8) L 09/28/16 05:31 Ur Specific [place] > 1.030 (1.010-1.025) H 09/26/16 05:11 Urine Glucose (UA) >=1000 mg/dL (Normal) H 09/26/16 05:11 Urine Microscopic WBC 5-15 per hpf (0-3) H 09/26/16 05:11 Ur Squamous Epith Cells Many per lpf (None-Few) H 09/26/16 05:11 Ur Culture Indicated? YES (NO) A 09/26/16 05:11 Salicylates < 5.0 mg/dL (15-30) L 09/26/16 03:35 Urine Opiates Screen Positive ng/mL (Crteji=882) H 09/26/16 05:11 Acetaminophen 4.0 mcg/mL (10-30) L 09/26/16 03:35 U Benzodiazepines Scrn Positive ng/mL (Yquutc=733) H 09/26/16 05:11 Consult Discharge Plan - Plan Referrals: Genet Tamayo MD [Primary Care Provider] -
--- NOTE | 2016-09-28 15:07 | Discharge Summary ---
Date of Encounter: 09/28/16 Time of Encounter: 15:05 - Discharge Diagnosis (1) Symptomatic sinus bradycardia Priority: Primary Status: Acute Comments: Likely secondary to Zanaflex (2) Acute encephalopathy Priority: Primary Status: Acute Comments: Possibly secondary to polypharmacy and multiple drug interactions including Benadryl, Keppra, Zanaflex, opioids, benzodiazepines and gabapentin (3) Hyperglycemia Priority: Secondary Status: Acute Comments: Possibly stressed induced as the patient has been having very mild hyperglycemia and has received only 4 units of insulin during her hospitalization Unlikely diagnosed with diabetes as her hemoglobin A1c was 5.4 and 5.5/checked twice (4) Seizure disorder Priority: Secondary Status: Acute Comments: Continue Keppra (5) Tobacco abuse Priority: Secondary Status: Acute Comments: Smoking cessation counseling - Discharge Medications Prescriptions: Nicotine Patch [Nicoderm] 21 mg TD DAILY #30 patch.td24 Home Medications: Cyanocobalamin (Vitamin B-12) [Vitamin B12] 1,000 mcg PO DAILY 09/26/16 [History ] Etodolac [Lodine] 400 mg PO BID 09/26/16 [History] Gabapentin [Neurontin] 800 mg PO TID 09/26/16 [History] LevETIRAcetam [Roweepra] 500 mg PO BID 09/26/16 [History] Nicotine Patch [Nicoderm] 21 mg TD DAILY #30 patch.td24 09/28/16 [Rx] Allergies/Adverse Reactions: Allergies Sulfa (Sulfonamide Antibiotics) Allergy (Verified 09/26/16 04:18) unknown childhood reaction Procedures/tests Complete & Pending: Procedures Performed prior 72 hours Category Date Time Status EKG [ECG 12 lead ECG] [ECG] AM 0600 Y 09/28/16 06:00 Ordered EV carotid duplex imaging BI Routine Y 09/27/16 10:09 Completed EV echocardiogram Routine Y 09/27/16 10:09 Completed Date of admission: 09/26/16 07:50 Primary care physician: Genet Tamayo MD Consults: 09/27/16 10:06 Consult to Neurology [CONS] Routine Consulting Provider: Neurology [facility] Reason for Consult: AMS, Hx of seizure Call Completed: Yes - Patient Status Disposition: Home, Self-Care Condition: Good Overall status at discharge: patient is back to baseline - Discharge Instructions Instructions: Diabetes Mellitus Type 2 in Adults (DC), Non-epileptic Seizures ( DC), Non-epileptic Seizures (GEN), Cigarette Smoking and Your Health, Commission Specialist (GEN) Follow Up With: Genet Tamayo MD [Primary Care Provider] - Additional Instructions: Follow with primary care physician within the next 7 days. Stop taking Zanaflex. It would be worth obtaining a glucometer and checking her glucose at home. Avoid narcotics. Fall precautions. - Diet and Activity Activity: increase activity as tolerated Diet: low fat, low cholesterol Hospital course: Ms. Valdivia is a 35 year old female past medical history significant for seizure disorder who was brought to the hospital for altered mental status and bradycardia. Patient woke up early on morning and was noted to be confused and her mother. Her mother is a registered nurse and checked the patient's pulse and was 40. and her blood sugar and it was reported as 460. She was brought to the emergency department where an EKG was done and heart rate was recorded as 41. pt not able to recall much of the events not sure she had a seizures or not, denies any toungue bite or incontinence She was seen for seizures and started on keppra and doing well denies any seizures since on meds. Has remained stable during her hospitalization, not showing any signs or symptoms of bradycardia any longer. She was recommended to stop center flex. 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 Was evaluated by neurology, no EEG was performed, Keppra was recommended to be continued. As mentioned above, hemoglobin A1c was 5.4 and 5.5. It is very unlikely the patient has diabetes and her hypoglycemia probably is related to stress. Time spent discussing smoking cessation with patient: 3 to 10 minutes - Time Spent with Patient Total time spent providing and/or coordinating discharge services: Greater than 30 minutes (40 min) - Constitutional Vitals: Temp Pulse Resp BP Pulse Ox 97.9 F 90 16 123/79 97 09/28/16 06:53 09/28/16 06:53 09/28/16 06:53 09/28/16 06:53 09/28/16 09:00 General appearance: Present: A&O X 3, no acute distress, answers questions appropriately - Head Head exam: Present: atraumatic, normocephalic - Eye Eye exam: Present: PERRL, conjuntiva pink, sclera anicteric Pupils: Present: PERRL - Neck Neck exam general surgery: Present: supple, trachea midline. Absent: lymphadenopathy - Respiratory Respiratory exam: Present: CTAB. Absent: accessory muscle use, rales, rhonchi, wheezes - Cardiovascular Cardiovascular exam: Present: RRR, +S1, +S2. Absent: diastolic murmur, gallop, rubs, systolic murmur - GI/Abdominal GI/Abdominal exam: Present: normal bowel sounds, soft, no peritoneal signs. Absent: distended, tenderness - Extremities Exam Extremities exam: Present: warm, radial pulses palpable and symetrical. Absent : calf tenderness, cyanotic, pedal edema - Neurological Exam Neurological exam: Present: CN II-XII intact, oriented X3, no focal deficits. Absent: pronater drift, facial droop, speech deficit - Skin Skin exam: Present: dry, intact
--- NOTE | 2016-09-28 16:43 | Carotid Imaging Report ---
Carotid Duplex Patient Name:Juan Valdivia Order Number:[id number] Procedure Date:09/27/2016 Date:1980Age:35 yrs Gender:Female Lt BP:133 / 86 mmHg Rt.BP:133 / 86 mmHgHeart Rate: Location:[facility] Room #: 2NE28 [employer] Clerk:Michelle Bowman Referring MD:Clark Bright MD pattern fitter:Genet Tamayo MD Reading MD:Star Sierra MD Primary Indications:AMS Risk Factors Yes/No Smoking Current Impressions: Findings: Left proximal ICA has a severe, 60-79% stenosis. Recommendations: Risk Factor Modification, Medical Therapy, and Follow up exam 12 months. Findings Carotid Duplex: Right: There is nonstenotic plaque in the right distal common carotid artery. There is smooth heterogeneous plaque. The right mid internal carotid artery has turbulent flow without plaque. Left: There is 60-79% stenosis in the left distal internal carotid artery. There is smooth homogeneous plaque. Prior Study: No prior study available for comparison. Carotid Results Right PSV EDV Assessment Proximal CCA 121 21 Normal Mid CCA 114 29 Normal Distal CCA 115 34 Non Stenotic Plaque Bifurcation 84 27 Normal Proximal ICA 74 33 Normal Mid ICA 108 52 Non Stenotic Plaque Distal ICA 102 43 Normal ECA 109 28 Normal Vertebral Artery 51 23 Antegrade Flow Left PSV EDV Assessment Proximal CCA 118 27 Normal Mid CCA 112 33 Normal Distal CCA 112 34 Normal Bifurcation 101 34 Normal Proximal ICA 84 41 Normal Mid ICA 108 48 Normal Distal ICA 138 58 60-79% stenosis ECA 75 20 Normal Vertebral Artery 49 22 Antegrade Flow Ratio's Right ICA/CCA Ratio: 0.95 ICA/CCA Values: 108/114 Left ICA/CCA Ratio: 1.23 ICA/CCA Values: 138/112 Updated by Star Sierra MD on 09/28/2016 4:39:14 PM electronically signed on 09/28/2016 4:39:25 PM with status of Final
== END 2016-09-28 16:40 | disposition home or self-care (01) ==
LOC: 2NENU 04:06 → 3BNU 04:06 → EMEROO 04:06 → SUATTDRO 07:50 → 2NENU 10:26
PROVIDERS: ADMIT Hospitalist; ATTEND Internal Medicine